=== PATIENT | male | born 1990 | race Caucasian/White ===

== ENCOUNTER 2020-05-14 23:19 | Emergency (ER) | payer SELFPAY ==
[~2020-05-14] VITALS: Ht 182.9 cm; Wt 86.4 kg
[2020-05-14 23:24] VITALS: Ht 182.9 cm; Wt 86.4 kg
[2020-05-15] MEDS ORDERED: TORADOL10 MG PO (00:40)
[2020-05-15 01:03] VITALS: BP 108/65
== END 2020-05-15 01:03 | disposition home or self-care (01) ==
LOC: D.ER 23:19
DX: S70.01XA Contusion of right hip, initial encounter (principal); S50.11XA Contusion of right forearm, initial encounter; S60.211A Contusion of right wrist, initial encounter; S63.501A Unspecified sprain of right wrist, initial encounter; W19.XXXA Unspecified fall, initial encounter; Y93.9 Activity, unspecified; Y92.9 Unspecified place or not applicable

== ENCOUNTER 2020-05-15 08:05 | Inpatient (IN) | payer MEDICAID ==
[~2020-05-15] VITALS: Ht 182.9 cm; Wt 86.2 kg
[2020-05-15] VITALS (12 sets, daily range): BP systolic 98–128; BP diastolic 42–74
--- NOTE | ~2020-05-15 | OP ---
PATIENT NAME: EVELYN JUAREZ MEDICAL RECORD: [id number] :88 [facility] ADMISSION DATE:05/16/20 SURGEON: LUIZA MARRERO MD DATE OF OPERATION: 05/16/2020 PREOPERATIVE DIAGNOSES: 1. Acute renal failure secondary to rhabdomyolysis. 2. Rhabdomyolysis. POSTOPERATIVE DIAGNOSES: 1. Acute renal failure secondary to rhabdomyolysis. 2. Rhabdomyolysis. PROCEDURE: Right IJ 12.5 cm Trialysis catheter placement. SURGEON: Luiza Marrero MD REPORT OF PROCEDURE: The patient's right neck was prepped and draped in sterile fashion. A 5 cc of 1% lidocaine was infused into the surrounding tissues. Using ultrasound guidance, a needle was used to cannulate the right internal jugular vein. The guidewire was advanced with ease. Over this wire, a dilator was placed followed by the triple lumen catheter. The catheter aspirated nonpulsatile dark blood and flushed easily with normal saline. This was sutured into place with 3-0 nylons and dressed appropriately. COMPLICATIONS: None. CONDITION: Stable. ANESTHESIA: Local. BLOOD LOSS: Minimal. Procedure done at the bedside. TRANSINT:[id number] Voice Confirmation ID: [id number] DOCUMENT ID: [id number] LUIZA MARRERO MD CC: [id number] DICTATION DATE: 05/16/20 155 CUSTOMER DATA TECHNICIAN: 05/17/20 0104 ADM IN [place] [id number] [place] [id number]
[~2020-05-15 08:05] MED LIST: TORADOL10 MG PO
[2020-05-15 09:48] LABS: BASOPHILS 0 % (0-2); EOSINOPHILS 0.1 % (0-7); HEMATOCRIT 49.3 % (42.0-54.0); HEMOGLOBIN 17.4 g/dL (13.5-17.5); IMMATURE GRANULOCYTES 0.3 % (0-5); LYMPHOCYTES 8.1 % (15-50); MCH 31.8 pg (26.0-34.0); MCHC 35.3 g/dL (31.0-37.0); MCV 90.1 fL (80.0-100.0); MEAN PLATELET VOLUME 9.9 fL (7.4-10.4); MONOCYTES 9.3 % (2-11); NEUTROPHILS 82.2 % (40-80); PLATELET COUNT 161 10x3/uL (130-400); RBC 5.47 10x6/uL (4.20-6.10); RDW 12.9 % (11.5-14.5); WBC 17.8 10x3/uL (4.8-10.8)
[2020-05-15 10:10] LABS: ALBUMIN 3.5 g/dL (3.4-5.0); ALKALINE PHOSPHATASE 60 U/L (30-120); BILIRUBIN - TOTAL 0.63 mg/dL (0.2-1.3); CALC OSMOLALITY 275 mosm/kg (275-300); CALCIUM 7.5 mg/dL (8.5-10.1); CARBON DIOXIDE 23.3 mmol/L (21.0-32.0); CHLORIDE - SERUM 96 mmol/L (98-107); CREATININE - SERUM 5.8 mg/dL (0.6-1.3); GLUCOSE 151 mg/dL (74-106); PROTEIN - SERUM 7.6 g/dL (6.4-8.2); SODIUM 129 mmol/L (136-145); UREA NITROGEN 52 mg/dL (7-18); eGFR NON AFRICAN AMERICAN 12 mL/min (90-120)
[2020-05-15 10:22] LABS: ALT (SGPT) 1057 U/L (10-68)
[2020-05-15 10:29] LABS: POTASSIUM - SERUM 7.3 mmol/L (3.5-5.1)
[2020-05-15 11:27] LABS: C-REACTIVE PROTEIN 9.2 mg/dL (0.0-0.9); MAGNESIUM - SERUM 2.7 mg/dL (1.8-2.4)
[2020-05-15 11:56] LABS: CKMB 2593.2 U/L (0.0-3.6); CREATINE KINASE 205664 UL (21-232)
--- NOTE | 2020-05-15 12:40 | NUR ---
DR JEFF AT BS. INSTR TO INFUSE BICARB DRIPP BOLUS/WIDE OPEN
--- NOTE | 2020-05-15 13:12 | NUR ---
REPORT TO HENNY CASANOVA
[2020-05-15 13:15] LABS: CREATINE KINASE 181680 UL (21-232)
[2020-05-15 13:16] LABS: CKMB 2092.5 U/L (0.0-3.6)
[2020-05-15 14:30] LABS: ERYTHROCYTE SEDIMENTATION RATE 3 mm/hr (0-15)
[2020-05-15 15:38] LABS: ANION GAP 14.8 mmol/L (8-16); BILIRUBIN - TOTAL 0.35 mg/dL (0.2-1.3); CARBON DIOXIDE 21.5 mmol/L (21.0-32.0); CREATININE - SERUM 5.8 mg/dL (0.6-1.3); POTASSIUM - SERUM 5.3 mmol/L (3.5-5.1)
[2020-05-15 15:39] LABS: ALBUMIN 2.4 g/dL (3.4-5.0); PROTEIN - SERUM 5.6 g/dL (6.4-8.2)
[2020-05-15 15:43] LABS: CALCIUM 6.9 mg/dL (8.5-10.1)
--- NOTE | 2020-05-15 15:50 | NUR ---
CRITICAL LAB: CALCIUM 6.9 HENNY CASANOVA NOTIFIED AND DR JEFF PAGED
--- NOTE | 2020-05-15 16:43 | NUR ---
CALLED DR JEFF ABOUT LAB REDRAW
[2020-05-15 19:52] LABS: APTT 26.7 SECONDS (22.8-39.4); INR 1.08 (0.85-1.17)
[2020-05-15 20:56] LABS: BILIRUBIN NEGATIVE (NEGATIVE); GLUCOSE 500 mg/dL (NEGATIVE); KETONE NEGATIVE (NEGATIVE); NITRITE NEGATIVE (NEGATIVE); UROBILINOGEN NORMAL (NORMAL)
[2020-05-15 20:57] LABS: BACTERIA MODERATE /hpf (NEGATIVE); WHITE CELLS - URINE 0-5 /hpf (NEGATIVE)
[2020-05-15 20:58] LABS: AMORPHOUS SEDIMENT >1+ /lpf (NONE SEEN); HYALINE CAST 0-5 /lpf (NONE SEEN)
[2020-05-15 21:48] LABS: UDS - AMPHET NEGATIVE QUAL (NEGATIVE); UDS - BARB NEGATIVE QUAL (NEGATIVE); UDS - BENZO NEGATIVE QUAL (NEGATIVE); UDS - COCAINE NEGATIVE QUAL (NEGATIVE); UDS - OPIATE POSITIVE QUAL (NEGATIVE); UDS - PCP NEGATIVE QUAL (NEGATIVE); UDS - THC POSITIVE QUAL (NEGATIVE)
[2020-05-16] VITALS (21 sets, daily range): BP systolic 95–136; BP diastolic 30–70
--- NOTE | 2020-05-16 02:42 | NUR ---
NS HUNG AT 1951 COMPLETE AT THIS TIME, 1000CC COMPLETE. HANGING NEW BAG AT 150CC/HR
[2020-05-16 06:36] LABS: BASOPHILS 0 % (0-2); EOSINOPHILS 0 % (0-7); IMMATURE GRANULOCYTES 0.3 % (0-5); LYMPHOCYTES 13.4 % (15-50); MCH 31.4 pg (26.0-34.0); MCHC 34.8 g/dL (31.0-37.0); MEAN PLATELET VOLUME 10.2 fL (7.4-10.4); MONOCYTES 11.2 % (2-11); NEUTROPHILS 75.1 % (40-80)
[2020-05-16 06:55] LABS: ANION GAP 15.2 mmol/L (8-16); CALCIUM 7.4 mg/dL (8.5-10.1); CARBON DIOXIDE 21.6 mmol/L (21.0-32.0); POTASSIUM - SERUM 5.8 mmol/L (3.5-5.1)
[2020-05-16 06:56] LABS: CREATININE - SERUM 7.5 mg/dL (0.6-1.3)
[2020-05-16 07:01] LABS: HEMATOCRIT 37.9 % (42.0-54.0); HEMOGLOBIN 13.2 g/dL (13.5-17.5); PLATELET COUNT 120 10x3/uL (130-400); RBC 4.21 10x6/uL (4.20-6.10); WBC 11.8 10x3/uL (4.8-10.8)
--- NOTE | 2020-05-16 08:00 | NUR ---
MORNING LABS CALLED TO DR JEFF. ORDERS RECEIVED.
[2020-05-16 11:29] LABS: ANION GAP 13.9 mmol/L (8-16); CALCIUM 7.6 mg/dL (8.5-10.1); CARBON DIOXIDE 23.2 mmol/L (21.0-32.0); CREATININE - SERUM 7.9 mg/dL (0.6-1.3); POTASSIUM - SERUM 5.1 mmol/L (3.5-5.1)
--- NOTE | 2020-05-16 13:42 | NUR ---
SPOKE WITH HENNY SARAH IN OR. PROVIDED HER WITH PT INFORMATION FOR DR. MARRERO REGARDING HD CATH PLACEMENT.
--- NOTE | 2020-05-16 15:14 | NUR ---
DR. MARRERO HERE FOR HD CATH PLACEMENT.
--- NOTE | 2020-05-16 15:50 | NUR ---
POST INSERTION XRAY FOR TRIALYSIS CATH TO RT NECK DONE. READ BY DR. MARRERO, PLACEMENT CONFIRMED.
--- NOTE | 2020-05-16 16:24 | NUR ---
REPORT TO MILTON CLEMONS. INFORMED HER OF DIALYSIS CATH IS READY FOR USE.
--- NOTE | 2020-05-16 17:00 | NUR ---
NURSES HERE TO BEGIN DIALYSIS
--- NOTE | 2020-05-16 18:00 | NUR ---
INFORMED SALVADOR Nogueira ABOUT ELEVATED T WAVE, INFORMED TO DO EKG, AND LET RENAL KNOW. RENAL PROVIER WAS NOTIFED BY HD NURSE AND [facility] LAB WAS ORDERED. PATIENT IS RESTING WEEL WITH NO SS OF DISTRESS.
--- NOTE | 2020-05-16 19:15 | NUR ---
REPORT TO HENNY ELDER
--- NOTE | 2020-05-16 23:06 | NUR ---
PATIENT RESTING WELL AT THIS TIME. NO SS OF DISTRESS.
[2020-05-17] VITALS (13 sets, daily range): BP systolic 92–125; BP diastolic 31–67; BMI 25.8
[2020-05-17 06:40] LABS: BASOPHILS 0.1 % (0-2); EOSINOPHILS 0.4 % (0-7); HEMATOCRIT 31.4 % (42.0-54.0); IMMATURE GRANULOCYTES 0.3 % (0-5); LYMPHOCYTES 16.5 % (15-50); MCH 31.2 pg (26.0-34.0); MEAN PLATELET VOLUME 9.7 fL (7.4-10.4); MONOCYTES 9.2 % (2-11); NEUTROPHILS 73.5 % (40-80); PLATELET COUNT 78 10x3/uL (130-400); RBC 3.53 10x6/uL (4.20-6.10); RDW 12.9 % (11.5-14.5)
[2020-05-17 07:11] LABS: CALC OSMOLALITY 285 mosm/kg (275-300); CARBON DIOXIDE 22.1 mmol/L (21.0-32.0); CHLORIDE - SERUM 104 mmol/L (98-107); GLUCOSE 87 mg/dL (74-106); POTASSIUM - SERUM 4.1 mmol/L (3.5-5.1); SODIUM 135 mmol/L (136-145); UREA NITROGEN 61 mg/dL (7-18); eGFR NON AFRICAN AMERICAN 10 mL/min (90-120)
--- NOTE | 2020-05-17 07:15 | NUR ---
ASSUMED CARE OF PT AT THIS TIME.
[2020-05-17 08:28] LABS: CALCIUM 7.1 mg/dL (8.5-10.1)
[2020-05-17 08:29] LABS: CKMB 416.1 U/L (0.0-3.6); CREATINE KINASE 43890 UL (21-232)
[2020-05-17 10:13] LABS: HEP B CORE AB TOTAL Negative (Negative); HEPATITIS C ANTIBODY >11.0 S/CO RAT (0.0-0.9)
[2020-05-17 14:10] LABS: SPE - A/G RATIO 1.1 (0.7-1.7); SPE - ALBUMIN 2.7 g/dL (2.9-4.4); SPE - ALPHA-1 GLOBULIN 0.2 g/dL (0.0-0.4); SPE - ALPHA-2 GLOBULIN 0.6 g/dL (0.4-1.0); SPE - BETA GLOBULIN 0.6 g/dL (0.7-1.3); SPE - M-SPIKE Not Observed g/dL (Not Observed); SPE - TOTAL PROTEIN 5.2 g/dL (6.0-8.5)
[2020-05-17 14:10] LABS: UPE RAND - ALBUMIN 41.8 % (()); UPE RAND - ALPHA 1 GLOBULIN 2.5 % (()); UPE RAND - ALPHA 2 GLOBULIN 9.9 % (()); UPE RAND - BETA GLOBULIN 29.5 % (()); UPE RAND - GAMMA GLOBULIN 16.3 % (())
--- NOTE | 2020-05-17 14:40 | NUR ---
PT TAKEN TO DIALYSIS VIA BED.
--- NOTE | 2020-05-17 19:45 | NUR ---
PATIENT WAS BROUGHT UP FROM DIALYSIS. HE IS ALERT AND ORIENTED. HE IS WEAK AND WHINEY. WE WILL CONTINUE TO MONITOR HIS KIDNEY FUNCTION.
[2020-05-18] VITALS: BP 122/51
--- NOTE | 2020-05-18 01:39 | NUR ---
PATIENT IS HAVING SEVERE ABDOMINAL PAIN. I GAVE HIM ZOFRAN FOR THE NAUSEA AND VOMITTING. I CALLED MARIE FRANCO, HE ORDERED A ONE TIME DOSE OF 2 MG OF MORPHINE. PATIENT IS TALKING ABOUT LEAVING, AND TRYING TO GO TO [facility] IN [place]. I TOLD HIM IT WAS GOING TO TAKE SOME TIME FOR HIM TO GET BETTER. WE WILL CONTINUE TO MONITOR HIS NAUSEA, VOMITTING AND PAIN.
--- NOTE | 2020-05-18 03:08 | NUR ---
PATIENT IS YELLING HE NEEDS PAIN MEDICATION OR HE IS GOING TO LEAVE AMA. I CALLED MATT WHO ORDERED BUPRENEX EVERY 4 HOURS.
[2020-05-18 06:28] LABS: HEMATOCRIT 33.4 % (42.0-54.0); HEMOGLOBIN 11.8 g/dL (13.5-17.5); MCH 31.6 pg (26.0-34.0); MCHC 35.3 g/dL (31.0-37.0); MCV 89.5 fL (80.0-100.0); MEAN PLATELET VOLUME 10.1 fL (7.4-10.4); NEUTROPHILS 71.4 % (40-80); PLATELET COUNT 88 10x3/uL (130-400); RBC 3.73 10x6/uL (4.20-6.10); RDW 12.9 % (11.5-14.5); WBC 6.3 10x3/uL (4.8-10.8)
[2020-05-18 06:53] LABS: CALC OSMOLALITY 279 mosm/kg (275-300); CALCIUM 7.3 mg/dL (8.5-10.1); CARBON DIOXIDE 25.5 mmol/L (21.0-32.0); CHLORIDE - SERUM 102 mmol/L (98-107); CREATININE - SERUM 6.4 mg/dL (0.6-1.3); GLUCOSE 97 mg/dL (74-106); POTASSIUM - SERUM 3.8 mmol/L (3.5-5.1); SODIUM 134 mmol/L (136-145); UREA NITROGEN 47 mg/dL (7-18); eGFR NON AFRICAN AMERICAN 11 mL/min (90-120)
[2020-05-18 07:15] LABS: CREATINE KINASE 32749 UL (21-232)
[2020-05-18 07:23] LABS: CKMB 149.9 U/L (0.0-3.6)
[2020-05-18 07:46] LABS: PLATELET ESTIMATE DECREASED
[2020-05-18 08:58] VITALS: BP 129/43
--- NOTE | 2020-05-18 09:30 | NUR ---
PT TAKEN TO DIALYSIS VIA BED.
[2020-05-18 13:06] VITALS: Ht 182.9 cm; Wt 86.2 kg
--- NOTE | 2020-05-18 13:28 | NUR ---
I have reviewed this patient and I concur with the Shift Assessment completed by the Licensed Practical Nurse today this shift.
[2020-05-18 14:17] LABS: BILIRUBIN NEGATIVE (NEGATIVE); GLUCOSE 100 mg/dL (NEGATIVE); KETONE NEGATIVE (NEGATIVE); NITRITE NEGATIVE (NEGATIVE); UROBILINOGEN NORMAL (NORMAL)
[2020-05-18 14:18] LABS: RED CELLS - URINE 0-5 /hpf (0-5); WHITE CELLS - URINE 0-5 /hpf (NEGATIVE)
[2020-05-18 14:19] LABS: BACTERIA FEW /hpf (NEGATIVE)
[2020-05-18 14:21] LABS: CREATININE - URINE 157.6 mg/dL (30-125)
[2020-05-18 14:22] LABS: PRO/CRE RATIO URINE 2.2 mg/g; PROTEIN - URINE 341.1 mg/dL (0.0-11.9)
[2020-05-18 15:26] VITALS: BP 121/55
[2020-05-18 18:31] VITALS: BP 140/58
[2020-05-18 21:22] VITALS: BP 134/67
--- NOTE | 2020-05-18 21:29 | NUR ---
PATIENT IS ANGRY THAT THE DRRicky DISCONTINUED HIS PAIN MEDICATIONS. HE WAS THREATENING TO GO AMA, BUT COULD NOT FIND ANY ONE TO PICK HIM UP. HE IS REFUSING TO WEAR TELEMETRY, SO I TOOK IT OUT.
--- NOTE | 2020-05-19 03:52 | NUR ---
PATIENT IS COMPLAINING OF ARM PAIN, ABD PAIN, AND BACK PAIN. DR. GARCIA DISCONTINUED BUPRENEX YESTERDAY. I CALLED MARIE FRANCO, WHO DID NOT WANT TO OVER RIDE DR. GARCIA.
[2020-05-19 04:01] VITALS: BP 141/56
[2020-05-19 07:06] LABS: BASOPHILS 0.3 % (0-2); EOSINOPHILS 6.2 % (0-7); HEMATOCRIT 36.3 % (42.0-54.0); HEMOGLOBIN 12.9 g/dL (13.5-17.5); IMMATURE GRANULOCYTES 0.6 % (0-5); LYMPHOCYTES 14.8 % (15-50); MCH 31.7 pg (26.0-34.0); MCHC 35.5 g/dL (31.0-37.0); MCV 89.2 fL (80.0-100.0); MEAN PLATELET VOLUME 10.2 fL (7.4-10.4); NEUTROPHILS 69.1 % (40-80); RBC 4.07 10x6/uL (4.20-6.10); RDW 12.5 % (11.5-14.5); WBC 7.2 10x3/uL (4.8-10.8)
[2020-05-19 07:10] LABS: PLATELET COUNT 92 10x3/uL (130-400)
[2020-05-19 07:38] LABS: ANION GAP 12.8 mmol/L (8-16); CALCIUM 7.6 mg/dL (8.5-10.1); CARBON DIOXIDE 26.1 mmol/L (21.0-32.0); CREATININE - SERUM 6.1 mg/dL (0.6-1.3); POTASSIUM - SERUM 3.9 mmol/L (3.5-5.1)
[2020-05-19 08:49] VITALS: BP 161/65
--- NOTE | 2020-05-19 13:43 | NUR ---
OT NOTE: ATTEMPTED TMT THIS AFTERNOON.. PT OUT OF ROOM. WILL ATTEMPT LATER DAVID BYRD, OTR/L
[2020-05-19 16:56] LABS: CREATINE KINASE 13859 UL (21-232)
[2020-05-19 17:25] LABS: CKMB 64.8 U/L (0.0-3.6)
--- NOTE | 2020-05-19 19:35 | NUR ---
PATIENT IS SLEEPING IN BED. HE VOMITED ONCE. ZOFRAN GIVEN. HE IS NOT ANXIOUS TONIGHT. WE WILL CONTINUE TO MONITOR HIS PAIN AND ANXIETY.
[2020-05-19 20:45] VITALS: BP 124/59
[2020-05-20 00:45] VITALS: BP 125/50
--- NOTE | 2020-05-20 03:25 | NUR ---
PATIENT IS SLEEPING IN BED. HE HAS NO COMPLAINTS AT THIS TIME. HE HAS NOT COMPLAINED OF PAIN. HE HAS NO COMPLAINTS AT THIS TIME.
[2020-05-20 04:45] VITALS: BP 129/70
[2020-05-20 06:13] LABS: BASOPHILS 0.4 % (0-2); EOSINOPHILS 6.2 % (0-7); HEMATOCRIT 33.5 % (42.0-54.0); IMMATURE GRANULOCYTES 0.8 % (0-5); LYMPHOCYTES 14.5 % (15-50); MCH 31.7 pg (26.0-34.0); MCHC 35.8 g/dL (31.0-37.0); MCV 88.4 fL (80.0-100.0); MEAN PLATELET VOLUME 10.6 fL (7.4-10.4); MONOCYTES 9.7 % (2-11); NEUTROPHILS 68.4 % (40-80); PLATELET COUNT 86 10x3/uL (130-400); RBC 3.79 10x6/uL (4.20-6.10); RDW 12.5 % (11.5-14.5); WBC 8.6 10x3/uL (4.8-10.8)
[2020-05-20 06:50] LABS: CALC OSMOLALITY 282 mosm/kg (275-300); CALCIUM 7.9 mg/dL (8.5-10.1); CARBON DIOXIDE 27.7 mmol/L (21.0-32.0); CHLORIDE - SERUM 102 mmol/L (98-107); CREATININE - SERUM 5.9 mg/dL (0.6-1.3); GLUCOSE 119 mg/dL (74-106); POTASSIUM - SERUM 3.6 mmol/L (3.5-5.1); SODIUM 136 mmol/L (136-145); UREA NITROGEN 40 mg/dL (7-18); eGFR NON AFRICAN AMERICAN 12 mL/min (90-120)
[2020-05-20 06:51] LABS: CKMB 68.2 U/L (0.0-3.6); CREATINE KINASE 11488 UL (21-232)
[2020-05-20 09:00] VITALS: BP 171/72
--- NOTE | 2020-05-20 16:37 | NUR ---
PT OFF UNIT TO DIALYSIS
--- NOTE | 2020-05-20 19:00 | NUR ---
REPORT RECEIVED, PT CARE ASSUMED. WROTE NAME ON BOARD. PT IN DIALYSIS AT THIS TIME.
--- NOTE | 2020-05-20 20:46 | NUR ---
PT BACK TO ROOM 2136 FROM DIALYSIS VIA BED ACCOMPANIED BY THIS NURSE AND HENNY VILLARREAL. REQUESTING JELL-O AND CUP OF ICE, PROVIDED. DENIES ANY OTHER NEEDS AT THIS TIME. BED IN LOWEST, SRX1, CALL LIGHT WITHIN REACH. WILL CTM.
[2020-05-20 22:30] VITALS: BP 126/68
[2020-05-21 02:00] VITALS: BP 120/61; BP 134/70
[2020-05-21 09:00] VITALS: BP 115/68
--- NOTE | 2020-05-21 12:30 | NUR ---
TRIALYSIS DRESSING CHANGED
[2020-05-21 12:40] LABS: BASOPHILS 0.2 % (0-2); EOSINOPHILS 4.5 % (0-7); HEMATOCRIT 33.7 % (42.0-54.0); HEMOGLOBIN 11.8 g/dL (13.5-17.5); LYMPHOCYTES 10.3 % (15-50); MCH 31.1 pg (26.0-34.0); MCV 88.7 fL (80.0-100.0); MEAN PLATELET VOLUME 10.3 fL (7.4-10.4); MONOCYTES 13.8 % (2-11); NEUTROPHILS 70.2 % (40-80); PLATELET COUNT 79 10x3/uL (130-400); RDW 12.9 % (11.5-14.5); WBC 9.6 10x3/uL (4.8-10.8)
--- NOTE | 2020-05-21 12:42 | NUR ---
OT NOTE: PT DOING SLIGHTLY BETTER TODAY. BED MOB WITH SBA; SIT TO STAND WITH MIN ASSIST..ATTEMPTED IN ROOM AMBULATION WITHOUT AD, HOWEVER, IT WAS NOT SAFE HE WAS FURNITURE WALKING AND NOT VERY STABLE. PROVIDED WITH WALKER AND GAIT WAS BETTER, HOWEVER, DUE TO DECREASED STRENGTH AND COORDINATION IN R HAND, IT WAS SLIGHTLY DIFFICULT FOR HIM TO MANAGE WALKER..IMPROVED HE PROCEEDED WITH AMBULATION. MIN/CGA WITH TOILET TRANSFER; MIN ASSIST WITH TRANSFER ONTO SHOWER BENCH. SET UP WITH SHOWER; AMB BACK TO BED WITH WALKER AND MIN ASSIST. PT VERY FATIGUED FOLLOWING SHOWER.. CHECKED ON HIM LATER AND STATED THAT HE WAS FEELING MUCH BETTER. DAVID BYRD, OTR/L [phone]
[2020-05-21 12:56] LABS: ALBUMIN 2.2 g/dL (3.4-5.0); ANION GAP 8.4 mmol/L (8-16); BILIRUBIN - TOTAL 1.09 mg/dL (0.2-1.3); CALCIUM 7.7 mg/dL (8.5-10.1); CARBON DIOXIDE 28.1 mmol/L (21.0-32.0); CREATININE - SERUM 6.9 mg/dL (0.6-1.3); POTASSIUM - SERUM 3.5 mmol/L (3.5-5.1); PROTEIN - SERUM 4.9 g/dL (6.4-8.2)
--- NOTE | 2020-05-21 13:30 | NUR ---
PT MOVED TO 2100
[2020-05-21 13:49] LABS: PLATELET ESTIMATE DECREASED
[2020-05-21 14:00] LABS: CREATINE KINASE 5855 UL (21-232)
[2020-05-21 16:00] VITALS: BP 121/61; BP 136/66; BP 160/82
--- NOTE | 2020-05-21 18:05 | NUR ---
PT SLEEPING, CALL LIGHT WITHIN REACH.
[2020-05-21 20:45] VITALS: BP 132/69
--- NOTE | 2020-05-21 22:49 | NUR ---
INITIAL ROUNDS COMPLETED AT 1915 HRS. PT REQUESTNG PAIN MEDS. DILAUDID 1MG SIVP TO NURSE PORT OF R JUGULAR TRIALYSIS CATH GIVEN AT 1930 HRS. PT UNHAPPY THAT DILAUDID WS DILUTED WITH NS. ASSESSMENT COMPLETED AT 2039HRS. VSS. ALERT AND ORIENTED TO PERSON, PLACE AND TIME. IMPAIRED ROM NOTED TO R ARM AND R LEG. BOTH SWOLLEN. O2 2LNC. LUNGS DIMINISHED IN BASES BILAT. R NECK TRIALYSIS WITH NS AT 50CC/HR. IV PATENT. HEART TONES S1 S2. K+ 3.5. KCL 40 MEQ PO GIVEN AT 2200 H RS. PERMISSION FOR HEMOSPLIT PLACEMENT OBTAINED VERBALLY. PT STATES UNABLE TO SIGN WITH SWOLLEN R ARM. Cheryl AGOSTO RN WITNESS. PT REQUESTING PAIN MEDS DELMY. INFORMED NEST DOSE AT 2330 HRS. SRUP X2, CALL LIGHT WITHIN REACH.
[2020-05-22 01:40] VITALS: BP 133/63
--- NOTE | 2020-05-22 02:11 | NUR ---
PT RESTING WITH EYES CLOSED. RESP EVEN AND REGULAR. SR UP X2, CALL LIGHT WITHIN REACH.
--- NOTE | 2020-05-22 03:41 | NUR ---
DILAUDID 1MG, ZOFRAN 4MG SIVP GIVEN FOR C/O LEG AND BACK PAIN, NAUSEA.
--- NOTE | 2020-05-22 04:39 | NUR ---
WILFREDO BATH COMPLETED.
[2020-05-22 06:13] LABS: BASOPHILS 0.2 % (0-2); EOSINOPHILS 5.1 % (0-7); HEMATOCRIT 31.8 % (42.0-54.0); HEMOGLOBIN 11.2 g/dL (13.5-17.5); IMMATURE GRANULOCYTES 0.9 % (0-5); LYMPHOCYTES 15.8 % (15-50); MCH 31.1 pg (26.0-34.0); MCHC 35.2 g/dL (31.0-37.0); MCV 88.3 fL (80.0-100.0); MEAN PLATELET VOLUME 10.5 fL (7.4-10.4); MONOCYTES 12.1 % (2-11); NEUTROPHILS 65.9 % (40-80); PLATELET COUNT 88 10x3/uL (130-400)
--- NOTE | 2020-05-22 06:26 | NUR ---
VSS THROUGHOUT NIGHT. PT STATES 1MG DILAUDID NOT HOLDING HIS PAIN. NPO FOR HEMOSPLIT PLACEMENT THIS AM. NEEDS MET; WILL CONTINUE TO MONITOR.
[2020-05-22 07:06] VITALS: BP 120/63
[2020-05-22 07:17] LABS: ALBUMIN 2.1 g/dL (3.4-5.0); ALKALINE PHOSPHATASE 27 U/L (30-120); ALT (SGPT) 237 U/L (10-68); BILIRUBIN - TOTAL 0.88 mg/dL (0.2-1.3); C-REACTIVE PROTEIN 3.5 mg/dL (0.0-0.9); CALCIUM 7.8 mg/dL (8.5-10.1); CARBON DIOXIDE 27.3 mmol/L (21.0-32.0); CHLORIDE - SERUM 99 mmol/L (98-107); CREATININE - SERUM 8.3 mg/dL (0.6-1.3); GLUCOSE 110 mg/dL (74-106); PHOSPHOROUS 4.8 mg/dL (2.5-4.9); POTASSIUM - SERUM 3.9 mmol/L (3.5-5.1); PROTEIN - SERUM 4.7 g/dL (6.4-8.2); SODIUM 131 mmol/L (136-145); eGFR NON AFRICAN AMERICAN 8 mL/min (90-120)
[2020-05-22 07:18] LABS: CALC OSMOLALITY 279 mosm/kg (275-300); CREATINE KINASE 3308 UL (21-232); UREA NITROGEN 57 mg/dL (7-18)
[2020-05-22 07:19] LABS: CKMB 8.6 U/L (0.0-3.6)
[2020-05-22 08:00] VITALS: BP 125/71
--- NOTE | 2020-05-22 11:23 | NUR ---
PATIENT NOTED TO HAVE SWELLING IN BOTH ARMS WITH SOME RED SMALL SPLOTHCES, RIGHT ANKLE SWELLIKNG NOTED WELL, OLIVIER.
--- NOTE | 2020-05-22 12:38 | NUR ---
Nutrition Follow-up: NPO for hemosplit placement today. Awaiting HD chair placement. Noted pt c/o abd pain. Wt: 190# (05/18) Labs noted: Na 131, K+ 3.9, Glu 110, Ca 7.8, PO4 4.8, Alb 2.1 Meds noted: Zofran, Pepcid, NS @ 50, electrolyte protocol -Rec resume renal diet following surgery. -Need new wt; noted daily wts ordered. -RD following.
--- NOTE | 2020-05-22 12:48 | NUR ---
PT BACK TO ROOM FROM PACU. HEMOSPLIT TO RIGHT CHEST NOTED TO HAVE SOME BLEEDING UNDER DRESSING. PACU WITH SANDBAG ON TILL TRANSPORT. LUNCH TRAY TO BEDSIDE.
[2020-05-22 15:00] VITALS: BP 134/72
--- NOTE | 2020-05-22 20:43 | NUR ---
REPORT RECEIVED, WILL CONT POC. PT A&O, UP IN BED. NO S/S OF DISTRESS OBSERVED. RR EVEN & UNLABORED ON ROOM AIR. PT REQUESTED PAIN MEDICINE. NEXT DOSE OF NORCO CAN BE GIVEN AT 2104. WILL GIVE DOSE AT THAT TIME. TRIALYSIS CATH PLACED TODAY. DRESSING INTACT, BLOOD CLOTTING UNDERNEATH. CALL LIGHT IN REACH, BED LOCKED AND LOWERED. ASSESSMENT COMPLETED AT THIS TIME. WILL CONT TO MONITOR.
--- NOTE | 2020-05-23 | NUR ---
PAGED MARIE SCOTT AP AND DISCUSSED PATIENT'S PAIN MANAGEMENT, NO NEW ORDERS, PAGED RENAL TO INFORM THAT PATIENT WANTS TO GO AMA BECAUSE HE IS NOT GETTING PAIN MEDICATIONS. BOTH APS AGREED TO ALLOW HIM TO LEAVE AND EDUCATE THAT IF THERE IS A FURTHER NEED HE WILL HAVE TO COME BACK THROUGH THE ER FOR TREATMENT. PATIENT SIGNED PAPER WORK AND PIV REMOVED FROM LEFT HAND CATH INTACT. PATIENT WHEELED OUT VIA WHEELCHAIR ASSISTED INTO FRIENDS TRUCK.
--- NOTE | 2020-05-23 13:18 | MORECARE ---
CASE MANAGEMENT DISCHARGE SUMMARY PATIENT: EVELYN JUAREZ UNIT: [id number] ADM DATE: 05/16/20 AGE: 29 : 88 SEX: M ROOM/BED: D.2101 AUTHOR: EBER BARBOZA PHYSICIAN: REFERRING PHYSICIAN: OLGA TRIPP DO DATE OF SERVICE: 05/23/20 Discharge Plan Patient Name: EVELYN JUAREZ Facility: [facility]:[place] : 1990 Planned Disposition: Left Against Medical Advice Anticipated Discharge Date: 05/22/20 Discharge Date: 05/23/2020 Expected LOS: 6 Initial Reviewer: [email or web address] Initial Review Date: 05/16/2020 Generated: 05/23/20 2:17 pm Comments DCP- Discharge Planning Updated by [email or web address]: Latanya Amaya on 05/22/20 4:[address] CM contacted Laisha Dennis, with HD regarding need for a chair/clinic. Patient reports that he wants to live with his mother and take HD in [place]. Laisha is working on this. Patient Name: EVELYN JUAREZ Page [phone] at 1318 All edits/amendments must be made on the electronic document DICTATION DATE: 05/23/20 131 STROKE COORDINATOR: KHAI 05/23/20 1317 RPT#: [id number] DC DATE:05/23/20 STATUS: DIS IN [facility] [address] [place] [address] END OF REPORT
--- NOTE | 2020-05-23 13:36 | EC ---
PATIENT:EVELYN JUAREZ DATE OF SERVICE: 05/16/20 SEX: M MEDICAL RECORD: [id number] DATE OF : [birth year] LOCATION:D.M2 D.210 AGE OF PATIENT: 29 ADMISSION DATE: 05/16/20 REFERRING PHYSICIAN: INTERPRETING PHYSICIAN: BELÉN ULLOA MD ECHOCARDIOGRAM REPORT ECHO CHARGES 4 ECHO COMPLETE Date: 05/22/20 CLINICAL DIAGNOSIS: R/O VEG ECHOCARDIOGRAPHIC MEASUREMENTS (adult normal given) AC root (d.<3.7cm) 2.5 cm LV Septum d (<1.2 cm> 1.1 cm Valve Excursion 1.9 cm LV Septum (systole) 1.6 cm Left Atria (s.<4.0cm> 3.5 cm LVPW d(<1.2cm) 0.9 cm RV (d.<2.3cm) 3.5 cm LVPW (sytole) 1.0 cm LV diastole(<5.6CM) 5.9 cm MV E-F(>70mm/sec) cm LV systole 4.4 cm LVOT Diameter 1.9 cm MV exc.(>10mm) cm Est.ejection fraction (50-75%) % DOPPLER: LVIT cm/sec A 76 cm/sec E 103 cm/sec LA cm/sec RVSP 32.7 mmHg LVOT 112 cm/sec AOP1/2T m/s Asc. Ao 152 cm/sec RVOT 82 cm/sec RA cm/sec PA 113 cm/sec AV Gradient Peak 9.2 mmHg AV Mean 4.1 mmHg AV Area 2.3 cm MV Gradient Peak 4.6 mmHg MV Mean 1.6 mmHg MV Area cm COMMENTS: Translator And Interpreter: Collin [place] Glass Curvature Gauger: 3 Dr. Scales TAPE# PACS Pericardial Effusion N DATE OF SERVICE: Adequate 2D, color flow imaging, spectral Doppler, and M-Mode. No LVH. LV internal dimensions are normal. Wall motion is normal. EF is greater than or equal to 55%. Aortic valve is tricuspid. No evidence of stenosis by Doppler interrogation. Left atrium is normal. Mitral valve shows no prolapse. Trivial MR. Right-sided chamber is grossly normal. Trivial TR. Miscellaneous: No evidence of vegetation in all 4 cardiac valves. ECHOCARDIOGRAM REPORT [id number] EVELYN JUAREZ TRANSINT:[id number] Voice Confirmation ID: [id number] DOCUMENT ID: [id number] BELÉN ULLOA MD at 1336 CC: [id number] DICTATION DATE: 05/22/20 163 LITERARY AGENT: 05/22/20 2114 DIS IN 05/23/20 [place] [id number] [place] [id number]
== END 2020-05-23 00:20 | disposition left against medical advice (07) | DRG 683 ==
LOC: D.ER 08:05 → D.EDHOLD 05-16 09:15 → D.M2 05-16 09:15
PROVIDERS: Emergency Medicine; Family Medicine; Internal Medicine Nephrology; ADMIT Family Medicine; ATTEND Family Medicine
PROC: 05HM33Z Insertion of Infusion Device into Right Internal Jugular Vein, Percutaneous Approach (ICD-10-PCS; principal; 2020-05-16)
PROC: B543ZZA Ultrasonography of Right Jugular Veins, Guidance (ICD-10-PCS; 2020-05-16)
PROC: 5A1D70Z Performance of Urinary Filtration, Intermittent, Less than 6 Hours Per Day (ICD-10-PCS; 2020-05-16)
DX: N17.9 Acute kidney failure, unspecified (principal); M62.82 Rhabdomyolysis; E87.1 Hypo-osmolality and hyponatremia; E87.5 Hyperkalemia; W19.XXXA Unspecified fall, initial encounter; E86.0 Dehydration; S63.501A Unspecified sprain of right wrist, initial encounter; S60.211A Contusion of right wrist, initial encounter; S70.01XA Contusion of right hip, initial encounter; E83.41 Hypermagnesemia; B19.20 Unspecified viral hepatitis C without hepatic coma